=== PATIENT | male | born 1955 | race Caucasian/White ===

== ENCOUNTER → 2017-01-06 | Outpatient (REF) | payer OTHER ==
[~2017-01-06] MED LIST: /GLYB5TA PO; ACTO45TA PO; AMLO10TAB PO; ASPI325T PO; GLUC1000 PO; HYDR25TA6 PO; LASI20TA PO; LISI40TA PO; LOPR100T PO; MULTIVIT PO; PERC5TAB8 OR
== END ==
LOC: EEVIPCON 16:55 → M LAB REF 16:55
PROVIDERS: ATTEND Nurse Practitioner Family
DX: S81.801A Unspecified open wound, right lower leg, initial encounter (principal); X58.XXXA Exposure to other specified factors, initial encounter; Y92.9 Unspecified place or not applicable; Y93.9 Activity, unspecified; Y99.9 Unspecified external cause status

== ENCOUNTER → 2020-04-08 | Outpatient (REF) | payer OTHER ==
[~2020-04-08] MED LIST changes: -/GLYB5TA PO; +GLYB1TAB29 PO
[2020-04-09 18:15] LABS: BACTERIA, URINE AUTO NEGATIVE (NEGATIVE); MUCUS, URINE SMALL (NEGATIVE); RBC, URINE AUTO 0 /HPF (0-3); SQUAMOUS EPITHELIAL CELL UR AU 0 /HPF (0-6); WBC, URINE AUTO 0 /HPF (0-3)
== END ==
LOC: M LAB REF 16:53
PROVIDERS: ATTEND Nurse Practitioner Family
DX: R31.29 Other microscopic hematuria (principal)

== ENCOUNTER → 2020-09-03 | Outpatient (CLI) | payer MEDICARE ==
--- NOTE | 2020-09-03 18:09 | REP ---
INDICATION: ACUTE KIDNEY FAILURE COMPARISON: 05/04/2016 TECHNIQUE: Real time ku scale ultrasound examination using curved array transducer. FINDINGS: Bilateral kidneys are normal in contour, size, echogenicity, and reniform shape. No hydronephrosis, nephrolithiasis, cystic or renal mass lesion. Right kidney measures 10.4 x 4.7 x 6.5 cm. Left kidney measures 10.2 x 4.2 x 5.7 cm. Bladder is unremarkable and bilateral ureteral jets are identified. IMPRESSION: 1. Normal renal ultrasound. <Electronically signed by Billy Putnam > 09/03/20 [id number]
== END ==
LOC: M RAD 12:55
PROVIDERS: ATTEND Nurse Practitioner Family
DX: N17.9 Acute kidney failure, unspecified (principal)

== ENCOUNTER 2021-02-06 10:25 | Emergency (ER) | payer MEDICARE ==
[~2021-02-06] VITALS: Ht 180.3 cm; Wt 120.5 kg
--- NOTE | 2021-02-06 12:50 | REP ---
INDICATION: LLE edema, r/o DVT. COMPARISON: None. TECHNIQUE: Left {lower extremity duplex venous scanning is performed from the groin to the ankle level. FINDINGS: The deep veins are anechoic and fully compressible from the groin to the popliteal fossa in the left lower extremity. Color flow imaging is homogeneous. Spectral Doppler interrogation demonstrates intact respiratory variation in flow and normal manual augmentation of flow. There is no evidence of deep vein thrombosis above the knee. There is no evidence of DVT in the visualized calf veins. Doppler interrogation of the contralateral common femoral vein shows normal symmetric respiratory phasicity. IMPRESSION: No evidence of DVT in the left lower extremity femoropopliteal veins. No DVT in the visible portions of the calf veins. <Electronically signed by Demetrius Sewell > 02/06/21 [id number]
--- NOTE | 2021-02-06 12:55 | REPVR ---
PROCEDURE INFORMATION: Exam: CT Head Without Contrast Exam date and time: 02/06/2021 12:12 PM Age: 65 years old Clinical indication: Other: Hearing loss; Additional info: Sudden onset unilateral hearing loss TECHNIQUE: Imaging protocol: Computed tomography of the head without contrast. Radiation optimization: All CT scans at this facility use at least one of these dose optimization techniques: automated exposure control; mA and/or kV adjustment per patient size (includes targeted exams where dose is matched to clinical indication); or iterative reconstruction. COMPARISON: MRI IAC'S W/O FOLL WITH CON 04/03/2015 8:44 AM FINDINGS: There are no intra-or extra-axial hemorrhages or fluid collections. There is no mass effect or midline shift. Ventricles are mildly prominent with associated cortical volume loss commensurate with patient's stated age. 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 Atherosclerotic changes within intracranial arteries. There are no focal parenchymal abnormalities. No calvarial fractures. External auditory canals, middle ears and mastoid air cells are grossly clear bilaterally. Visualized paranasal sinuses are clear. IMPRESSION: Probable age-related generalized atrophy and chronic ischemic changes. No acute intracranial process. No intracranial hemorrhage. External auditory canals, middle ears and mastoid air cells are grossly clear bilaterally. Electronically signed by: Rj Lehman On 02/06/2021 12:55:05 PM
[2021-02-06] MEDS ORDERED: CARBAMIDE PEROXIDE 6.5% OTIC SOLN 15ML AD STA (13:34)
[2021-02-06 14:16] LABS: BASO % 0.6 % (0.0-1.0); EOS # 0.2 10^3/uL (0.0-0.5); EOS % 2.6 % (0.0-3.0); HEMATOCRIT 42.6 % (42.0-52.0); HEMOGLOBIN 14.4 g/dl (13.5-17.5); LYMPH # 1.8 10^3/uL (1.5-5.0); LYMPH % 26.6 % (24.0-44.0); MEAN CORPUSCULAR HEMOGLOBIN 32.1 pg (27.0-33.0); MEAN CORPUSCULAR HGB CONC 33.8 g/dl (32.0-36.5); MEAN CORPUSCULAR VOLUME 94.9 fl (80.0-96.0); MONO # 0.7 10^3/uL (0.0-0.8); MONO % 9.6 % (2.0-8.0); NEUTROPHILS # 4.2 10^3/uL (1.5-8.5); NEUTROPHILS % 60.2 % (36.0-66.0); PLATELET COUNT, AUTOMATED 151 10^3/uL (150-450); RED BLOOD COUNT 4.49 10^6/uL (4.30-6.10); WHITE BLOOD COUNT 6.9 10^3/uL (4.0-10.0)
[2021-02-06 14:36] LABS: ALBUMIN 3.8 GM/DL (3.2-5.2); BILIRUBIN,TOTAL 0.7 MG/DL (0.2-1.0); CALCIUM LEVEL 8.5 MG/DL (8.8-10.2); CREATININE FOR GFR 1.43 MG/DL (0.70-1.30); GLOMERULAR FILTRATION RATE 52.8 (>49); POTASSIUM SERUM 3.9 MEQ/L (3.5-5.1); TOTAL PROTEIN 7.5 GM/DL (6.4-8.2)
[2021-02-06] MEDS ORDERED: PRED20TA PO ×2 (16:12→16:16)
[2021-02-06 16:13] VITALS: BP 145/69
== END 2021-02-06 16:41 | disposition home or self-care (01) ==
LOC: M ED 10:25
DX: H65.02 Acute serous otitis media, left ear (principal); H61.21 Impacted cerumen, right ear; S80.12XA Contusion of left lower leg, initial encounter; W01.0XXA Fall on same level from slipping, tripping and stumbling without subsequent striking against object, initial encounter; Y92.89 Other specified places as the place of occurrence of the external cause; E11.40 Type 2 diabetes mellitus with diabetic neuropathy, unspecified; I12.9 Hypertensive chronic kidney disease with stage 1 through stage 4 chronic kidney disease, or unspecified chronic kidney disease; N18.9 Chronic kidney disease, unspecified; E78.5 Hyperlipidemia, unspecified; G47.33 Obstructive sleep apnea (adult) (pediatric); Z79.899 Other long term (current) drug therapy; Z79.84 Long term (current) use of oral hypoglycemic drugs; Z79.82 Long term (current) use of aspirin

== ENCOUNTER → 2021-07-28 | Outpatient (REF) | payer MEDICARE ==
[~2021-07-28] MED LIST changes: +PRED20TA PO
== END ==
LOC: M LAB REF 12:49
PROVIDERS: ATTEND Nurse Practitioner Family
DX: E83.42 Hypomagnesemia (principal)

== ENCOUNTER → 2022-02-22 | Outpatient (REF) | payer MEDICARE, OTHER | LOC: M LAB REF 12:11 | PROVIDERS: ATTEND Podiatrist Foot & Ankle Surgery | DX: L03.031 Cellulitis of right toe (principal) ==

== ENCOUNTER → 2022-04-19 | Outpatient (REF) | payer OTHER ==
[2022-04-19 19:35] LABS: CREATININE, URINE 26.2 MG/DL; MALB URINE SIEMENS 8.6 MG/L; MAU/CREAT RATIO 32.8 MCG/MG (0.0-30.0)
== END ==
LOC: M LAB REF 17:04
PROVIDERS: ATTEND Nurse Practitioner Family
DX: E11.22 Type 2 diabetes mellitus with diabetic chronic kidney disease (principal)